=== PATIENT | female | born 2000 | race Caucasian/White ===

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

== ENCOUNTER 2019-03-01 14:35 | Emergency (ER) | payer MEDICAID ==
[~2019-03-01] VITALS: Ht 165 cm; Wt 96.7 kg
[~2019-03-01 14:35] MED LIST changes: +AZIT250T PO; +BENZ-13 PO; +PRD20T PO; +RT-ALBUINH INH
--- NOTE | 2019-03-01 14:51 | ED GU-Female ---
General Stated Complaint: VAGINAL BLEEDING - 14 WKS PREG Source: patient, other Exam Limitations: no limitations History of Present Illness Date Seen by Provider: Mar 01, 2019 Time Seen by Provider: 14:40 Initial Comments Patient presents to ER by private conveyance with her significant other and chief complaint of vaginal bleeding starting about 4:00 this morning and couple hours later she had some dark brown blood and they thought maybe a small tear at her vaginal orifice. She is a with a history of preeclampsia with her previous and a . She is 14 weeks and 6 days by EDC of 08/24/[address] Floyd in [place], [place]. She says at the time she and her partner were having intercourse and the partner was using his fingers and got too aggressive and she had some bleeding. She wants to make sure that everything is okay. She has no problems with thus far. No fevers chills dysuria diarrhea constipation or abdominal pain. Allergies and Home Medications Allergies Coded Allergies: topiramate (Verified Allergy, Severe, throat swelling, 05/29/18) buspirone (Verified Allergy, Intermediate, vomitting, 05/29/18) ferrous fumarate (Verified Allergy, Intermediate, swelling itching, 05/29/18) folic acid (Verified Allergy, Intermediate, swelling itching, 05/29/18) vit,tx calc,iron,folic acd(less thn 1 mg) (Verified Allergy, Intermediate, swelling itching, 05/29/18) vitamins with calcium (Verified Allergy, Intermediate, swelling itching, 05/29/18) Home Medications Albuterol Sulfate 1 Puff Puff, 2 PUFF INH Q4H PRN for SOA 1 PUFF = 90 MCG Prescribed by: MILLA FREDERICK on 09/07/182214 Azithromycin 250 Mg Tablet, 250 MG PO DAILY Prescribed by: MILLA FREDERICK on 09/07/182214 Benzonatate 100 Mg Capsule, 200 MG PO Q8H PRN for COUGH Prescribed by: MILLA FREDERICK on 09/07/182214 Cephalexin 500 Mg Capsule, 500 MG PO BID Prescribed by: CAPRI FRIEND on 06/14/18 1212 Docusate Sodium 100 Mg Capsule, 100 MG PO BID Prescribed by: HERNANDO ROMERO on 06/12/18 0040 Ferrous Sulfate 325 Mg Tablet, 325 MG PO DAILY Prescribed by: CAPRI FRIEND on 06/14/18 1214 Ibuprofen 800 Mg Tablet, 800 MG PO Q6H Prescribed by: HERNANDO ROMERO on 06/12/18 004 Labetalol HCl 200 Mg Tablet, 100 MG PO BID Prescribed by: HERNANDO ROMERO on 06/12/1839 Oxycodone HCl/Acetaminophen 1 Each Tablet, 1 TAB PO Q4H PRN for PAIN-MODERATE TO SEVERE Prescribed by: HERNANDO ROMERO on 06/12/1839 Prednisone 20 Mg Tab, 60 MG PO DAILY Prescribed by: MILLA FREDERICK on 09/07/18 2215 Patient Home Medication List Home Medication List Reviewed: Yes Review of Systems Review of Systems Constitutional: No chills, No fever EENTM: No ear discharge, No ear pain Respiratory: No cough, No short of breath Cardiovascular: No chest pain, No palpitations Gastrointestinal: No abdominal pain, No nausea, No vomiting Genitourinary: see HPI; denies discharge, denies dysuria : Yes Expected Date of Delivery: August 24, 2019 All Other Systemes Reviewed Negative Unless Noted: Yes Past Wcoajch-Nhntnt-Bgextc Hx Patient Social History 2nd Hand Smoke Exposure: No Recent Hopitalizations: No Immunizations Up To Date Date of Influenza Vaccine: Jan 14, 2018 Seasonal Allergies Seasonal Allergies: No Past Medical History Surgeries: Yes Section Respiratory: Yes Asthma Cardiac: No Neurological: No Genitourinary: No Gastrointestinal: No Musculoskeletal: No Endocrine: No HEENT: Yes (wears glasses) Cancer: No Anxiety Integumentary: No Blood Disorders: No Family Medical History CANCER- (MOTHER'S SIDE) Diabetes mellitus (GRANDPARENTS) FH: cancer FH: heart disease (DAD'S SIDE OF FAMILY) FH: hepatitis (FATHER HAS HEPATITIS C) HEART HEPA Hypertension (BOTH SIDES OF FAMILY) Physical Exam Vital Signs Vital Signs - First Documented 03/01/19 14:40 Temp 36.9 Pulse 97 B/P (MAP) 139/81 Pulse Ox 98 O2 Delivery Room Air Capillary Refill : Height, Weight, BMI Height: 5'5.00" Weight: 212lbs. 2.0oz. 96.334772oh; 35.15 BMI Method:Stated General Appearance: WD/WN, no apparent distress HEENT: PERRL/EOMI, pharynx normal Neck: full range of motion, normal inspection Cardiovascular: normal peripheral pulses, regular rate, rhythm Respiratory: no respiratory distress, no accessory muscle use Gastrointestinal: normal bowel sounds, non tender, soft Neurologic/Psychiatric: alert, normal mood/affect, oriented x 3 Skin: normal color, warm/dry Progress/Results/Core Measures Suspected Sepsis SIRS Temperature: Pulse: Respiratory Rate: Blood Pressure / Mean: Results/Orders Lab Results Laboratory Tests Test 03/01/19 14:38 03/01/19 14:47 Range/Units Urine Color YELLOW Urine Clarity CLEAR Urine pH 6.0 5-9 Urine Specific Pelzer >1.030 1.016-1.022 Urine Protein NEGATIVE NEGATIVE Urine Glucose (UA) NEGATIVE NEGATIVE Urine Ketones NEGATIVE NEGATIVE Urine Nitrite NEGATIVE NEGATIVE Urine Bilirubin NEGATIVE NEGATIVE Urine Urobilinogen 0.2 < = 1.0 MG/DL Urine Leukocyte Esterase TRACE NEGATIVE Urine RBC (Auto) 3+ H NEGATIVE Urine RBC 5-10 H /HPF Urine WBC 2-5 /HPF Urine Squamous Epithelial Cells 5-10 /HPF Urine Crystals NONE /LPF Urine Bacteria FEW H /HPF Urine Casts NONE /LPF Urine Mucus NEGATIVE /LPF Urine Culture Indicated NO Human Chorionic Gonadotropin, Quant [id number] H <5 MIU/ML My Orders Orders - NICOLE HARRINGTON Urine Bedside (03/01/19 14:36) Ua Culture If Indicated (03/01/19 14:36) Hcg,Quantitative (03/01/19 15:14) Vital Signs/I&O 03/01/19 14:40 Temp 36.9 Pulse 97 B/P (MAP) 139/81 Pulse Ox 98 O2 Delivery Room Air Capillary Refill : Progress Note #1: Time: 14:50 Progress Note Plan speculum exam looking for vaginal laceration. heart tones. HCG quantitative. She has on record as being B positive blood type. Urinalysis. Progress Note #2: Time: 15:30 Progress Note heart tones 148. Vaginal examination revealed normal looking cervix with the 6:00 position of the vaginal introitus having a less than 1 cm ecchymotic appearing tissue that represents a healing small laceration that is superficial and does not require any repair at this time. We have instructed her to go on pelvic rest until she sees her DOCUMENT COORDINATOR this Saturday, 6 days from now. Beta hCG pending. Departure Impression Primary Impression: Vaginal bleeding before 22 weeks gestation Additional Impression: Vaginal injury Qualified Codes: S39.93XA - Unspecified injury of pelvis, initial encounter Disposition: 01 HOME, SELF-CARE Condition: Stable Departure-Patient Inst. Decision time for Depature: 15:45 Referrals: CARLA FLOYD MD (PCP/Family) Primary Care Physician Patient Instructions: Bleeding With (DC) Add. Discharge Instructions: Pelvic rest until cleared by your DOCUMENT COORDINATOR. You have a small, mild cut in the vagina that is well on its way to healing. You may yet see some spotting or dark brown blood pass over the next day or so. Your fetus' heart rate was 145 which is normal. Please keep your scheduled follow-up appointment this week. Work/School Note: Work Release Form Date Seen in the Emergency Department: Mar 01, 2019 Return to Work: Mar 02, 2019 Restrictions: No Restrictions NICOLE HARRINGTON Mar 01, 2019 14:51 POS
[2019-03-01 14:53] LABS: CLARITY,URINE CLEAR; COLOR,URINE YELLOW
[2019-03-01 14:54] LABS: BACTERIA,URINE FEW /HPF; BILIRUBIN,URINE NEGATIVE (NEGATIVE); GLUCOSE, URINE (UA) NEGATIVE (NEGATIVE); KETONES,URINE NEGATIVE (NEGATIVE); LEUKOCYTE ESTERASE ,URINE TRACE (NEGATIVE); NITRITE,URINE NEGATIVE (NEGATIVE); PROTEIN,URINE NEGATIVE (NEGATIVE)
--- OUTSIDE RECORDS SUMMARY | 2019-03-26 09:01 | XMS REPORT ---
Author Author Diane ELY [facility] Address [address] [place] [address] Care Team Providers Care Fuel Handler Name Role Phone ELY, TARA Unavailable PROBLEMS Type Condition ICD9-CM Code UYZ25-VP Code Onset Dates Condition S tatus SNOMED Code Problem Carpal tunnel syndrome during O26.899 Oct, Active Problem Mild intermittent asthma with acute exacerbation J 45.21 Active 436524205 Problem Missed menses N92.6 Active 357196 00 Problem Chronic headaches R51 Jun, Active 38764155 Problem Seasonal allergic rhinitis J30.2 Apr, Active 663381347 Problem Asthma J45.909 Sep, Active 5169189 01 Problem Intractable migraine without aura and without st atus migrainosus G43.019 Jun, Active 818295010 ALLERGIES Substance Reaction Event Type Date Status Topiramate shortness of breath Drug Allergy May, Active BuSpar dizziness Drug Allergy May, Active BuSpar nausea and vomiting Drug Allergy May, Active PrePLUS itching Drug Allergy May, Active ENCOUNTERS Encounter Location Date Diagnosis [address] [address] Oct, Contact dermatitis L25.[address] [address] Aug, Acute bacterial bronchitis J20.8 ; Asthma exacerbation J45.901 and Cough due to bronchospasm J98.[address] [address] Aug, [address] [address] Aug, Migraine headache G43.[address] [address] Aug, Osteochondritis M93.90 and Acute right ankle pain M25.[address] [place] [address] July, Right ankle pain M25.571 and Right ankle injury, initial encounter S99.911A [facility] [address] [address] July, care and examination Z39.2 an d Missed menses N92.[address] [address] [facility] [address] [place] [phone] May, Cough due to bronchospasm J98.01 ; Asthma J45.909 and Acute bacterial bronchitis J20.[address] [address] May, Infection of superficial incisional surg ical site after procedure, initial encounter T81.41XA [address] [address] May, Supervision of normal first in third trimester Z34.03 and 37 weeks gestation of Z3A.[address] [address] 04 May, 2018 Supervision of normal first in third trimester Z34.03 and 36 weeks gestation of Z3A.36 [facility] [address] [place] [phone] May, Acute intractable headache, unspecified headache type R51 and with 35 completed weeks gestation Z3A.35 [facility] [address] [address] May, [facility] [address] [place] [phone] May, [address] [address] May, Supervision of normal first in third trimester Z34.[address] [address] 08 May, 2018 Acute URI J06.9 and Mild intermittent as thma with acute exacerbation J45.[address] [address] May, [facility] [address] [place] [address] May, Supervision of normal first in third trimester Z34.03 ; Decreased movements in third trimester, single or unspecified fetus O36.8130 and Viral upper respiratory tract infection J06.9 [facility] [address] [id number] [address] [place] [phone] Apr, [facility] [address] [id number] [address] [place] [phone] Apr, [facility] [address] [id number] [address] [place] [phone] Apr, [facility] [address] [id number] [address] [place] [phone] Apr, [facility] [address] [id number] [address] [place] [phone] Apr, [facility] [address] [id number] [address] [place] [phone] Mar, [facility] [address] [id number] [address] [place] [phone] Mar, [facility] [address] [id number] [address] [place] [phone] Jan, IMMUNIZATIONS No Known Immunizations SOCIAL HISTORY Never Assessed REASON FOR VISIT Cough - states is currently breast feeding. States cough without feeding, states recent and coughing is hurting surgical incision. PLAN OF CARE Activity Details Follow Up w/ FOOD AND NUTRITION SERVICES SUPERVISOR 06/22/2018 Reason:2 week f/u Future/Pending Procedure NEBULIZER TREATMENT VITAL SIGNS Height 65 in 2018-06-18 Weight 217.37 lbs 2018-06-18 Temperature 98.6 degrees Fahrenheit 2018-06-18 Heart Rate 87 bpm 2018-06-18 Oximetry 98 % 2018-06-18 BMI 36.17 kg/m2 2018-06-18 Blood pressure systolic 128 mmHg 2018-06-18 Blood pressure diastolic 70 mmHg 2018-06-18 MEDICATIONS Medication Instructions Dosage Frequency Start Date End Date Duration S tatus Keflex 500 MG Orally every 12 hrs 1 capsule 12h May, 10 day(s) Active Flonase 50 mcg/act Nasally Once a day 1 spray in each nostril 24h May, 30 day(s) Active Amoxicillin-Pot Clavulanate 875-125 MG Orally every 12 hrs 1 tablet 12h May, 10 day(s) Active Tylenol 325 MG Orally every 6 hours 2 tablets 6h May, Unknown Fluconazole 150 MG Orally daily Take 1 tablet with o nset of symptoms. Wait 3 days, take second tablet. 24h May, 2 doses Ac tive RESULTS No Results PROCEDURES Procedure Date Ordered Result Body Site NEB/MDI RX INITIAL June 18, 2018 INSTRUCTIONS MEDICATIONS ADMINISTERED No Known Medications MEDICAL (GENERAL) HISTORY Type Description Date Medical History asthma Surgical History section 06/11/2018 Hospitalization History childbirth 06/11/2018
--- OUTSIDE RECORDS SUMMARY | 2019-03-26 09:01 | XMS REPORT | Continuity of Care Document ---
Author Organization Unknown Address Unknown Phone Unavailable Allergies Active Description Code Type Severity Reaction Onset Reported/Identified Relationship to Patient Clinical Status Yes topiramate [id number] Drug Allerg y Severe throat swelling 05/29/2018 Yes buspirone [id number] Drug Allergy Moderate vomitting 05/29/2018 Yes ferrous fumarate [id number] Drug Allergy Moderate swelling itchin Yes folic acid [id number] Drug Allerg y Moderate swelling itchin 05/29/2018 Yes vit,tx calc,iron,folic acd(less thn 1 mg) [id number] Drug Allergy Moderate swelling itchin 05/29/2018 Yes vitamins with calcium [id number] Drug Allergy Moderate swelling itchin 05/29/2018 Medications There is no data. Problems Date Dx Coded Attending Type Code Diagnosis Diagnosed By 04/16/2018 JAMES WEN DO Ot O99.89 OTH DISEASES AND CONDITIONS COMPL PREG/C 04/16/2018 WEN DHAVAL FERRERAA K Ot R10.9 UNSPECIFIED ABDOMINAL PAIN 04/16/2018 DHAVAL WEN DOA K Ot Z3A.35 35 WEEKS GESTATION OF 05/06/2018 WEN DO JAMES K Ot O99.89 OTH DISEASES AND CONDITIONS COMPL PREG/C 05/06/2018 DHAVAL WEN DOA K Ot R10.9 UNSPECIFIED ABDOMINAL PAIN 05/06/2018 DHAVAL WEN DOA K Ot Z3A.35 35 WEEKS GESTATION OF 05/29/2018 WEN DO JAMES K Ot O36.81 30 DECREASED MOVEMENTS, THIRD TRIMEST 05/29/2018 WEN DO JAMES K Ot Z3A.35 35 WEEKS GESTATION OF 06/02/2018 WEN DO JAMES K Ot O36.81 30 DECREASED MOVEMENTS, THIRD TRIMEST 06/02/2018 WEN DO JAMES K Ot Z3A.35 35 WEEKS GESTATION OF 06/04/2018 WEN DO JAMES K Ot O36.81 30 DECREASED MOVEMENTS, THIRD TRIMEST 06/04/2018 WEN DO JAMES K Ot Z3A.35 35 WEEKS GESTATION OF 06/14/2018 ALMAZ CUMMINGS MD Ot D62 ACUTE POSTHEMORRHAGIC ANEMIA 06/14/2018 ALMAZ CUMMINGS MD Ot 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 06/14/2018 ALMAZ CUMMINGS MD Ot K59.00 CONSTIPATION, UNSPECIFIED 06/14/2018 ALMAZ CUMMINGS MD Ot O14.14 SEVERE PRE-ECLAMPSIA COMPLICATING CHILDB 06/14/2018 ALMAZ CUMMINGS MD Ot O90.81 ANEMIA OF THE PUERPERIUM 06/14/2018 ALMAZ CUMMINGS MD Ot O90.89 OTH COMPLICATIONS OF THE PUERPERIUM, NEC 06/14/2018 ALMAZ CUMMINGS MD Ot R30 .0 DYSURIA 06/14/2018 ALMAZ CUMMINGS MD Ot Z37 .0 SINGLE LIVE 06/14/2018 ALMAZ CUMMINGS MD, Ot Z3A.37 37 WEEKS GESTATION OF 06/20/2018 ALMAZ CUMMINGS MD Ot D62 ACUTE POSTHEMORRHAGIC ANEMIA 06/20/2018 ALMAZ CUMMINGS MD Ot 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 06/20/2018 ALMAZ CUMMINGS MD Ot K59.00 CONSTIPATION, UNSPECIFIED 06/20/2018 ALMAZ CUMMINGS MD Ot O14.14 SEVERE PRE-ECLAMPSIA COMPLICATING CHILDB 06/20/2018 ALMAZ CUMMINGS MD Ot O90.81 ANEMIA OF THE PUERPERIUM 06/20/2018 ALMAZ CUMMINGS MD Ot O90.89 OTH COMPLICATIONS OF THE PUERPERIUM, NEC 06/20/2018 ALMAZ CUMMINGS MD Ot R30 .0 DYSURIA 06/20/2018 ALMAZ CUMMINGS MD Ot Z37 .0 SINGLE LIVE 06/20/2018 ALMAZ CUMMINGS MD Ot Z3A.37 37 WEEKS GESTATION OF 09/07/2018 MILLA FREDERICK DO Ot F41.9 ANXIETY DISORDER, UNSPECIFIED 09/07/2018 MILLA FREDERICK DO Ot J45.909 UNSPECIFIED ASTHMA, UNCOMPLICATED 09/07/2018 MILLA FREDERICK DO Ot R06.02 SHORTNESS OF BREATH 09/07/2018 YOLY FERRERAMILLA Jerel Ot Z82.49 FAMILY HX OF ISCHEM HEART DIS AND OTH DI 09/07/2018 YOLY FERRERAMILLA Jerel Ot Z88.8 ALLERGY STATUS TO OTH DRUG/MEDS/BIOL SUB 09/07/2018 YOLY FERRERA MILLA Beltrán Ot Z98.890 OTHER SPECIFIED POSTPROCEDURAL STATES 09/11/2018 YOLY FERRERAMILLA Jerel Ot F41.9 ANXIETY DISORDER, UNSPECIFIED 09/11/2018 YOLY FERRERAMILLA Ot J45.909 UNSPECIFIED ASTHMA, UNCOMPLICATED 09/11/2018 YOLY FERRERAMILLA Jerel Ot R06.02 SHORTNESS OF BREATH 09/11/2018 YOLY FERRERAMILLA Ot Z82.49 FAMILY HX OF ISCHEM HEART DIS AND OTH DI 09/11/2018 YOLY FERRERAMILLA Ot Z88.8 ALLERGY STATUS TO OTH DRUG/MEDS/BIOL SUB 09/11/2018 YOLY FERRERAMILLA Ot Z98.890 OTHER SPECIFIED POSTPROCEDURAL STATES 03/06/2019 NICOLE HARRINGTON MD Ot F41. 9 ANXIETY DISORDER, UNSPECIFIED 03/06/2019 NICOLE HARRINGTON MD Ot J45.909 UNSPECIFIED ASTHMA, UNCOMPLICATED 03/06/2019 NIOCLE HARRINGTON MD Ot O20. 9 HEMORRHAGE IN EARLY , UNSPECIFI 03/06/2019 NICOLE HARRINGTON MD Ot O99.342 OTH MENTAL DISORDERS COMP , SEC 03/06/2019 NICOLE HARRINGTON MD Ot O99.512 DISEASES OF THE RESP SYS COMP , 03/06/2019 NICOLE HARRINGTON MD Ot O9A.212 INJ/POISN/OTH CONSEQ OF EXTRN CAUSES COM 03/06/2019 NICOLE HARRINGTON MD Ot S39.93XA UNSPECIFIED INJURY OF PELVIS, INITIAL EN 03/06/2019 NICOLE HARRINGTON MD Ot Z3A. 14 14 WEEKS GESTATION OF 03/06/2019 NICOLE HARRINGTON MD Ot Z79. 52 CARE HOME (CURRENT) USE OF SYSTEMIC STER 03/06/2019 NICOLE HARRINGTON MD Ot Z82. 49 FAMILY HX OF ISCHEM HEART DIS AND OTH DI 03/06/2019 NICOLE HARRINGTON MD Ot Z88. 8 ALLERGY STATUS TO OTH DRUG/MEDS/BIOL SUB 03/08/2019 NICOLE HARRINGTON MD Ot F41. 9 ANXIETY DISORDER, UNSPECIFIED 03/08/2019 NICOLE HARRINGTON MD Ot J45.909 UNSPECIFIED ASTHMA, UNCOMPLICATED 03/08/2019 NICOLE HARRINGTON MD Ot O20. 9 HEMORRHAGE IN EARLY , UNSPECIFI 03/08/2019 NICOLE HARRINGTON MD Ot O99.342 OTH MENTAL DISORDERS COMP , SEC 03/08/2019 NICOLE HARRINGTON MD Ot O99.512 DISEASES OF THE RESP SYS COMP , 03/08/2019 NICOLE HARRINGTON MD Ot O9A.212 INJ/POISN/OTH CONSEQ OF EXTRN CAUSES COM 03/08/2019 NICOLE HARRINGTON MD Ot S39.93XA UNSPECIFIED INJURY OF PELVIS, INITIAL EN 03/08/2019 NICOLE HARRINGTON MD Ot Z3A. 14 14 WEEKS GESTATION OF 03/08/2019 NICOLE HARRINGTON MD Ot Z79. 52 CARE HOME (CURRENT) USE OF SYSTEMIC STER 03/08/2019 NICOLE HARRINGTON MD Ot Z82. 49 FAMILY HX OF ISCHEM HEART DIS AND OTH DI 03/08/2019 NICOLE HARRINGTON MD Ot Z88. 8 ALLERGY STATUS TO OTH DRUG/MEDS/BIOL SUB Procedures Code Description Performed By Per formed On [id number] EX TRACTION OF PRODUCTS OF CONCEPTION, LO 06/11/2018 Results Test Result Range CULTURE, GROUP B STREP WITH SUSCEPTIBILI TY - 05/26/18 14:32 CULTURE, GROUP B STREP WITH SUSCEPTIBILITY SEE NOT E NRG Complete urinalysis with reflex to cultu re - 05/29/18 20:00 Urine color determination YELLOW NRG Urine clarity determination VERY CLOUDY NRG Urine pH measurement by test strip 6 5-9 Specific gravity of urine by test strip 1.020 1.016-1.022 Urine protein assay by test strip, semi-quantitative 1+ NEGATIVE Urine glucose detection by automated test strip NE GATIVE NEGATIVE Erythrocytes detection in urine sediment by light micr oscopy 3+ NEGATIVE Urine ketones detection by automated test strip 1+ NEGATIVE Urine nitrite detection by test strip NEGATIVE NEGATIVE Urine total bilirubin detection by test strip NEGA TIVE NEGATIVE Urine urobilinogen measurement by automated test strip (mass/volume) 1 mg/dL NORMAL Urine leukocyte esterase detection by dipstick 1+ NEGATIVE Automated urine sediment erythrocyte cou nt by microscopy (number/high power field) [HPF] NRG Automated urine sediment leukocyte count by microscopy (number/high power field) [HPF] NRG Bacteria detection in urine sediment by light microsco py FEW NRG Squamous epithelial cells detection in u rine sediment by light microscopy 10-25 NRG Crystals detection in urine sediment by light microsco py PRESENT NRG Casts detection in urine sediment by light microscopy NONE NRG Mucus detection in urine sediment by light microscopy MODERATE NRG Complete urinalysis with reflex to culture NO NRG Calcium oxalate crystals detection in ur ine sediment by light microscopy LARGE NRG Urine protein/creatinine mass ratio - 20:00 Urine protein measurement (mass/volume) 20 mg/dL 6-12 Urine creatinine measurement (mass/volume) 217 mg/ dL 30-125 Urine protein/creatinine mass ratio 0.09 NRG Bacterial urine culture - 05/29/18 20:00 Bacterial urine culture 3 OR MORE NRG COLONY COUNT >100,000/ML NRG FTX;REPORTABLE (GRAM POSITIVE) SUGGESTING PROBABLE NRG FREE TEXT ENTRY 2 COLLECTION CONTAMINATION WITH SK IN NRG FREE TEXT ENTRY 3 CHENTE. NO SUSCEPTIBILITY PERFOR MED NRG Complete blood count (CBC) with automate d white blood cell (WBC) differential - 05/29/18 21:25 Blood leukocytes automated count (number/volume) 10.3 10*3/uL 4.3-11.0 Blood erythrocytes automated count (number/volume) 4.33 10*6/uL 4.35-5.85 Venous blood hemoglobin measurement (mass/volume) 12.6 g/dL 11.5-16.0 Blood hematocrit (volume fraction) 38 % 35-52 Automated erythrocyte mean corpuscular volume 87 [ foz_us] 80-99 Automated erythrocyte mean corpuscular h emoglobin (mass per erythrocyte) 29 pg 25-34 Automated erythrocyte mean corpuscular h emoglobin concentration measurement (mass/volume) 34 g/dL 32-36 Automated erythrocyte distribution width ratio 14. 0 % 10.0- 14.5 Automated blood platelet count (count/volume) 313 10*3/uL 130-400 Automated blood platelet mean volume measurement 11.2 [foz_us] 7.4-10.4 Automated blood neutrophils/100 leukocytes 68 % 42-75 Automated blood lymphocytes/100 leukocytes 23 % 12-44 Blood monocytes/100 leukocytes 9 % 0-12 Automated blood eosinophils/100 leukocytes 0 % 0-10 Automated blood basophils/100 leukocytes 0 % 0-10 Blood neutrophils automated count (number/volume) 7.0 10*3 1.8-7.8 Blood lymphocytes automated count (number/volume) 2.3 10*3 1.0-4.0 Blood monocytes automated count (number/volume) 1. 0 10*3 0.0-1.0 Automated eosinophil count 0.0 10*3/uL 0 .0-0.3 Automated blood basophil count (count/volume) 0.0 10*3/uL 0.0-0.1 Comprehensive metabolic panel - 05/29/18 21:25 Serum or plasma sodium measurement (moles/volume) 138 mmol/L 135-145 Serum or plasma potassium measurement (moles/volume) 4.3 mmol/L 3.6-5.0 Serum or plasma chloride measurement (moles/volume) 105 mmol/L 98-107 Carbon dioxide 21 mmol/L 21-32 Serum or plasma anion gap determination (moles/volume) 12 mmol/L 5-14 Serum or plasma urea nitrogen measurement (mass/volume ) 6 mg/dL 7-18 Serum or plasma creatinine measurement (mass/volume) 0.61 mg/dL 0.60-1.30 Serum or plasma urea nitrogen/creatinine mass ratio 10 NRG Serum or plasma creatinine measurement w ith calculation of estimated glomerular filtration rate > NRG Serum or plasma glucose measurement (mass/volume) 74 mg/dL 70-105 Serum or plasma calcium measurement (mass/volume) 9.8 mg/dL 8.5-10.1 Serum or plasma total bilirubin measurement (mass/volu me) 0.4 mg/dL 0.1-1.0 Serum or plasma alkaline phosphatase luis alfredo surement (enzymatic activity/volume) 176 U/L 60-350 Serum or plasma aspartate aminotransfera se measurement (enzymatic activity/volume) 19 U/L 5-34 Serum or plasma alanine aminotransferase measurement (enzymatic activity/volume) 12 U/L 0-55 Serum or plasma protein measurement (mass/volume) 6.7 g/dL 6.4-8.2 Serum or plasma albumin measurement (mass/volume) 3.2 g/dL 3.2-4.5 CALCIUM CORRECTED 10.4 mg/dL 8.5-10.1 Lactate dehydrogenase 1 [enzymatic activ ity/volume] in serum or plasma - 05/29/18 21:25 Lactate dehydrogenase 1 [enzymatic activ ity/volume] in serum or plasma 183 U/L 125-220 Complete urinalysis with reflex to cultu re - 06/11/18 04:00 Urine color determination YELLOW NRG Urine clarity determination CLEAR NR G Urine pH measurement by test strip 6.5 5-9 Specific gravity of urine by test strip 1.010 1.016-1.022 Urine protein assay by test strip, semi-quantitative NEGATIVE NEGATIVE Urine glucose detection by automated test strip NE GATIVE NEGATIVE Erythrocytes detection in urine sediment by light micr oscopy NEGATIVE NEGATIVE Urine ketones detection by automated test strip NE GATIVE NEGATIVE Urine nitrite detection by test strip NEGATIVE NEGATIVE Urine total bilirubin detection by test strip NEGA TIVE NEGATIVE Urine urobilinogen measurement by automated test strip (mass/volume) NORMAL NORMAL Urine leukocyte esterase detection by dipstick 1+ NEGATIVE Automated urine sediment erythrocyte cou nt by microscopy (number/high power field) NONE NRG Automated urine sediment leukocyte count by microscopy (number/high power field) NONE NRG Bacteria detection in urine sediment by light microsco py NEGATIVE NRG Squamous epithelial cells detection in u rine sediment by light microscopy 0-2 NRG Crystals detection in urine sediment by light microsco py NONE NRG Casts detection in urine sediment by light microscopy NONE NRG Mucus detection in urine sediment by light microscopy SMALL NRG Complete urinalysis with reflex to culture NO NRG Urine protein/creatinine mass ratio - 04:00 Urine protein measurement (mass/volume) 15 mg/dL 6-12 Urine creatinine measurement (mass/volume) 50 mg/d L 30-125 Urine protein/creatinine mass ratio 0.30 NRG Complete blood count (CBC) with automate d white blood cell (WBC) differential - 06/11/18 04:35 Blood leukocytes automated count (number/volume) 9.8 10*3/uL 4.3-11.0 Blood erythrocytes automated count (number/volume) 3.88 10*6/uL 4.35-5.85 Venous blood hemoglobin measurement (mass/volume) 11.4 g/dL 11.5-16.0 Blood hematocrit (volume fraction) 34 % 35-52 Automated erythrocyte mean corpuscular volume 87 [ foz_us] 80-99 Automated erythrocyte mean corpuscular h emoglobin (mass per erythrocyte) 29 pg 25-34 Automated erythrocyte mean corpuscular h emoglobin concentration measurement (mass/volume) 34 g/dL 32-36 Automated erythrocyte distribution width ratio 14. 2 % 10.0- 14.5 Automated blood platelet count (count/volume) 307 10*3/uL 130-400 Automated blood platelet mean volume measurement 10.7 [foz_us] 7.4-10.4 Automated blood neutrophils/100 leukocytes 64 % 42-75 Automated blood lymphocytes/100 leukocytes 26 % 12-44 Blood monocytes/100 leukocytes 9 % 0-12 Automated blood eosinophils/100 leukocytes 1 % 0-10 Automated blood basophils/100 leukocytes 0 % 0-10 Blood neutrophils automated count (number/volume) 6.3 10*3 1.8-7.8 Blood lymphocytes automated count (number/volume) 2.6 10*3 1.0-4.0 Blood monocytes automated count (number/volume) 0. 9 10*3 0.0-1.0 Automated eosinophil count 0.1 10*3/uL 0 .0-0.3 Automated blood basophil count (count/volume) 0.0 10*3/uL 0.0-0.1 Comprehensive metabolic panel - 06/11/18 04:35 Serum or plasma sodium measurement (moles/volume) 133 mmol/L 135-145 Serum or plasma potassium measurement (moles/volume) 3.7 mmol/L 3.6-5.0 Serum or plasma chloride measurement (moles/volume) 102 mmol/L 98-107 Carbon dioxide 20 mmol/L 21-32 Serum or plasma anion gap determination (moles/volume) 11 mmol/L 5-14 Serum or plasma urea nitrogen measurement (mass/volume ) 5 mg/dL 7-18 Serum or plasma creatinine measurement (mass/volume) 0.56 mg/dL 0.60-1.30 Serum or plasma urea nitrogen/creatinine mass ratio 9 NRG Serum or plasma creatinine measurement w ith calculation of estimated glomerular filtration rate > NRG Serum or plasma glucose measurement (mass/volume) 77 mg/dL 70-105 Serum or plasma calcium measurement (mass/volume) 9.1 mg/dL 8.5-10.1 Serum or plasma total bilirubin measurement (mass/volu me) 0.6 mg/dL 0.1-1.0 Serum or plasma alkaline phosphatase luis alfredo surement (enzymatic activity/volume) 194 U/L 60-350 Serum or plasma aspartate aminotransfera se measurement (enzymatic activity/volume) 23 U/L 5-34 Serum or plasma alanine aminotransferase measurement (enzymatic activity/volume) 9 U/L 0-55 Serum or plasma protein measurement (mass/volume) 6.2 g/dL 6.4-8.2 Serum or plasma albumin measurement (mass/volume) 3.2 g/dL 3.2-4.5 CALCIUM CORRECTED 9.7 mg/dL 8.5-10.1 Serum or plasma uric acid measurement (m ass/volume) - 06/11/18 04:35 Serum or plasma uric acid measurement (mass/volume) 5.7 mg/dL 2.6-7.2 Lactate dehydrogenase 1 [enzymatic activ ity/volume] in serum or plasma - 06/11/18 04:35 Lactate dehydrogenase 1 [enzymatic activ ity/volume] in serum or plasma 191 U/L 125-220 Blood type T Indirect antibody screen pa brian - 06/11/18 07:05 ABO+Rh group BP NRG Transfusion band number [id number] [facility] Blood group antibody screen NEGATIVE NR G Complete blood count (CBC) with automate d white blood cell (WBC) differential - 06/12/18 05:35 Blood leukocytes automated count (number/volume) 16.6 10*3/uL 4.3-11.0 Blood erythrocytes automated count (number/volume) 3.52 10*6/uL 4.35-5.85 Venous blood hemoglobin measurement (mass/volume) 10.2 g/dL 11.5-16.0 Blood hematocrit (volume fraction) 31 % 35-52 Automated erythrocyte mean corpuscular volume 89 [ foz_us] 80-99 Automated erythrocyte mean corpuscular h emoglobin (mass per erythrocyte) 29 pg 25-34 Automated erythrocyte mean corpuscular h emoglobin concentration measurement (mass/volume) 33 g/dL 32-36 Automated erythrocyte distribution width ratio 14. 3 % 10.0- 14.5 Automated blood platelet count (count/volume) 298 10*3/uL 130-400 Automated blood platelet mean volume measurement 10.8 [foz_us] 7.4-10.4 Automated blood neutrophils/100 leukocytes 80 % 42-75 Automated blood lymphocytes/100 leukocytes 9 % 12-44 Blood monocytes/100 leukocytes 10 % 0-12 Automated blood eosinophils/100 leukocytes 0 % 0-10 Automated blood basophils/100 leukocytes 0 % 0-10 Blood neutrophils automated count (number/volume) 13.3 10*3 1.8-7.8 Blood lymphocytes automated count (number/volume) 1.6 10*3 1.0-4.0 Blood monocytes automated count (number/volume) 1. 7 10*3 0.0-1.0 Automated eosinophil count 0.0 10*3/uL 0 .0-0.3 Automated blood basophil count (count/volume) 0.0 10*3/uL 0.0-0.1 Comprehensive metabolic panel - 06/12/18 05:35 Serum or plasma sodium measurement (moles/volume) 134 mmol/L 135-145 Serum or plasma potassium measurement (moles/volume) 4.6 mmol/L 3.6-5.0 Serum or plasma chloride measurement (moles/volume) 104 mmol/L 98-107 Carbon dioxide 21 mmol/L 21-32 Serum or plasma anion gap determination (moles/volume) 9 mmol/L 5-14 Serum or plasma urea nitrogen measurement (mass/volume ) 6 mg/dL 7-18 Serum or plasma creatinine measurement (mass/volume) 0.60 mg/dL 0.60-1.30 Serum or plasma urea nitrogen/creatinine mass ratio 10 NRG Serum or plasma creatinine measurement w ith calculation of estimated glomerular filtration rate > NRG Serum or plasma glucose measurement (mass/volume) 95 mg/dL 70-105 Serum or plasma calcium measurement (mass/volume) 8.2 mg/dL 8.5-10.1 Serum or plasma total bilirubin measurement (mass/volu me) 0.4 mg/dL 0.1-1.0 Serum or plasma alkaline phosphatase luis alfredo surement (enzymatic activity/volume) 178 U/L 60-350 Serum or plasma aspartate aminotransfera se measurement (enzymatic activity/volume) 21 U/L 5-34 Serum or plasma alanine aminotransferase measurement (enzymatic activity/volume) 10 U/L 0-55 Serum or plasma protein measurement (mass/volume) 6.1 g/dL 6.4-8.2 Serum or plasma albumin measurement (mass/volume) 3.1 g/dL 3.2-4.5 CALCIUM CORRECTED 8.9 mg/dL 8.5-10.1 Lactate dehydrogenase 1 [enzymatic activ ity/volume] in serum or plasma - 06/12/18 05:35 Lactate dehydrogenase 1 [enzymatic activ ity/volume] in serum or plasma 257 U/L 125-220 Human immunodeficiency virus (HIV) type 1 and 2 antibody detection - 06/12/18 15:48 Serum HIV 1+2 antibody detection by immunoblot Non-Reactive Non-Reactive Body fluid hepatitis B virus surface ant igen detection - 06/12/18 15:48 Confirmatory quantitative serum or plasm a hepatitis B virus surface antigen measurement Non-Reactive Non-Reactive RUBELLA ANTIBODY IGG - 06/12/18 15:48 Interpretation of serum rubella virus IgG antibody girish t Positive Negative Rubella IgG ab 1.12 % 0.00-0.89 Serum reagin antibody assay (units/volum e) by RPR - 06/12/18 15:48 Serum reagin antibody assay (units/volume) by RPR Non-Reactive Non-Reactive Complete blood count (CBC) with automate d white blood cell (WBC) differential - 06/14/18 06:19 Blood leukocytes automated count (number/volume) 7.4 10*3/uL 4.3-11.0 Blood erythrocytes automated count (number/volume) 3.13 10*6/uL 4.35-5.85 Venous blood hemoglobin measurement (mass/volume) 9.5 g/dL 11.5-16.0 Blood hematocrit (volume fraction) 29 % 35-52 Automated erythrocyte mean corpuscular volume 91 [ foz_us] 80-99 Automated erythrocyte mean corpuscular h emoglobin (mass per erythrocyte) 30 pg 25-34 Automated erythrocyte mean corpuscular h emoglobin concentration measurement (mass/volume) 33 g/dL 32-36 Automated erythrocyte distribution width ratio 14. 6 % 10.0- 14.5 Automated blood platelet count (count/volume) 293 10*3/uL 130-400 Automated blood platelet mean volume measurement 10.2 [foz_us] 7.4-10.4 Automated blood neutrophils/100 leukocytes 53 % 42-75 Automated blood lymphocytes/100 leukocytes 33 % 12-44 Blood monocytes/100 leukocytes 8 % 0-12 Automated blood eosinophils/100 leukocytes 6 % 0-10 Automated blood basophils/100 leukocytes 0 % 0-10 Blood neutrophils automated count (number/volume) 3.9 10*3 1.8-7.8 Blood lymphocytes automated count (number/volume) 2.5 10*3 1.0-4.0 Blood monocytes automated count (number/volume) 0. 6 10*3 0.0-1.0 Automated eosinophil count 0.4 10*3/uL 0 .0-0.3 Automated blood basophil count (count/volume) 0.0 10*3/uL 0.0-0.1 Complete urinalysis with reflex to cultu re - 06/14/18 11:25 Urine color determination YELLOW NRG Urine clarity determination CLEAR NR G Urine pH measurement by test strip 6 5-9 Specific gravity of urine by test strip 1.025 1.016-1.022 Urine protein assay by test strip, semi-quantitative 2+ NEGATIVE Urine glucose detection by automated test strip NE GATIVE NEGATIVE Erythrocytes detection in urine sediment by light micr oscopy 5+ NEGATIVE Urine ketones detection by automated test strip NE GATIVE NEGATIVE Urine nitrite detection by test strip NEGATIVE NEGATIVE Urine total bilirubin detection by test strip NEGA TIVE NEGATIVE Urine urobilinogen measurement by automated test strip (mass/volume) NORMAL NORMAL Urine leukocyte esterase detection by dipstick 1+ NEGATIVE Automated urine sediment erythrocyte cou nt by microscopy (number/high power field) [HPF] NRG Automated urine sediment leukocyte count by microscopy (number/high power field) [HPF] NRG Bacteria detection in urine sediment by light microsco py NEGATIVE NRG Squamous epithelial cells detection in u rine sediment by light microscopy 5-10 NRG Crystals detection in urine sediment by light microsco py NONE NRG Casts detection in urine sediment by light microscopy NONE NRG Mucus detection in urine sediment by light microscopy NEGATIVE NRG Complete urinalysis with reflex to culture NO NRG Bacterial urine culture - 06/14/18 11:25 Bacterial urine culture 3 OR MORE NRG COLONY COUNT >100,000/ML NRG FTX;REPORTABLE SUGGESTING PROBABLE COLLECTION NRG FREE TEXT ENTRY 2 CONTAMINATION WITH SKIN CHENTE NRG FREE TEXT ENTRY 3 NO SUSCEPTIBILITY PERFORMED NRG HCG, QUAL REFLEX TO QUANT - 08/11/18 10: 50 HCG, TOTAL, QL NEGATIVE See Note: BLOOD TPYE/RH FACTOR - 12/29/18 12:40 ABO GROUP B NRG RH TYPE RH(D) POSITIVE NRG ANTIBODY SCREEN - 12/29/18 12:40 ANTIBODY SCREEN, RBC W/REFL ID, TITER AND AG NO ANTIBODIES DETECTED NRG SYPHILIS (RPR W/ REFLEX CONFIRMATION) - 12/29/18 12:40 RPR (DX) W/REFL TITER AND CONFIRMATORY TESTING NON-REACTIVE NON-REACTIVE HEP B SURFACE ANTIGEN - 12/29/18 12:40 HEPATITIS B SURFACE ANTIGEN NON-REACTIVE NON-REACTIVE HCG, QUANTITATIVE - 12/29/18 12:40 HCG, TOTAL, QN 9571 mIU/mL NRG CULTURE, URINE - 12/29/18 12:40 CULTURE, URINE, ROUTINE SEE NOTE NRG Complete urinalysis with reflex to cultu re - 03/01/19 14:38 Urine color determination YELLOW NRG Urine clarity determination CLEAR NR G Urine pH measurement by test strip 6.0 5-9 Specific gravity of urine by test strip > 1.016-1.022 Urine protein assay by test strip, semi-quantitative NEGATIVE NEGATIVE Urine glucose detection by automated test strip NE GATIVE NEGATIVE Erythrocytes detection in urine sediment by light micr oscopy 3+ NEGATIVE Urine ketones detection by automated test strip NE GATIVE NEGATIVE Urine nitrite detection by test strip NEGATIVE NEGATIVE Urine total bilirubin detection by test strip NEGA TIVE NEGATIVE Urine urobilinogen measurement by automated test strip (mass/volume) 0.2 mg/dL < = 1.0 Urine leukocyte esterase detection by dipstick TRA CE NEGATIVE Automated urine sediment erythrocyte cou nt by microscopy (number/high power field) [HPF] NRG Automated urine sediment leukocyte count by microscopy (number/high power field) [HPF] NRG Bacteria detection in urine sediment by light microsco py FEW NRG Squamous epithelial cells detection in u rine sediment by light microscopy 5-10 NRG Crystals detection in urine sediment by light microsco py NONE NRG Casts detection in urine sediment by light microscopy NONE NRG Mucus detection in urine sediment by light microscopy NEGATIVE NRG Complete urinalysis with reflex to culture NO NRG Serum or plasma choriogonadotropin measu rement (units/volume) - 03/01/19 14:47 Serum or plasma choriogonadotropin measurement (units/ volume) [id number] m[iU]/mL <5 Encounters ACCT No. Visit Date/Time Discharge Status Pt. Type Provider Facility Loc./Unit Complaint [id number] 02/25/2019 16:00:00 02/25/2019 23:59:5 9 CLS Outpatient ALMAZ CUMMINGS [facility] [id number] 12/29/2018 11:00:00 Document Registration [id number] 08/11/2018 10:45:00 Document Registration [id number] 05/26/2018 13:15:00 Document Registration [id number] 03/01/2019 14:36:00 16:20:00 DIS Outpatient INCOLE HARRINGTON MD [facility] ER FS VAGINAL BLEEDING - [address] PREG [id number] 09/07/2018 21:44:00 22:32:00 DIS Emergency MILLA FREDERICK DO [facility] ER FS TROBLE BREATHING [id number] 06/11/2018 02:30:00 16:30:00 DIS Inpatient ALMAZ CUMMINGS MD [facility] LDRP LABOR [id number] 05/29/2018 19:51:00 22:54:00 DIS Outpatient JAMES WEN DO [facility] WSo CONTRACTIONS [id number] 04/16/2018 17:03:00 19:50:00 DIS Outpatient JAMES WEN DO [facility] WSo ABD PAIN
== END 2019-03-01 16:20 | disposition home or self-care (01) ==
LOC: EDUNIT# 14:35 → ER FS 14:36
DX: O20.9 Hemorrhage in early pregnancy, unspecified (principal); O9A.212 Injury, poisoning and certain other consequences of external causes complicating pregnancy, second trimester; S39.93XA Unspecified injury of pelvis, initial encounter; O99.512 Diseases of the respiratory system complicating pregnancy, second trimester; J45.909 Unspecified asthma, uncomplicated; O99.342 Other mental disorders complicating pregnancy, second trimester; F41.9 Anxiety disorder, unspecified; Z88.8 Allergy status to other drugs, medicaments and biological substances; Z3A.14 14 weeks gestation of pregnancy; Z79.52 Long term (current) use of systemic steroids; Z82.49 Family history of ischemic heart disease and other diseases of the circulatory system
CPT/HCPCS: 36415; 81000; 84702

== ENCOUNTER 2019-04-14 16:51 | Emergency (ER) | payer MEDICAID ==
[~2019-04-14] VITALS: Ht 165 cm; Wt 95.7 kg
--- NOTE | 2019-04-14 17:12 | ED Headache ---
General Chief Complaint: Head/Cervical Problems Stated Complaint: MIGRAINE/PAINFUL URINATING Source: patient Exam Limitations: no limitations (MIKE SCHUMACHER DO) History of Present Illness Date Seen by Provider: Apr 14, 2019 Time Seen by Provider: 17:05 Initial Comments The patient is a pleasant 18-year-old female who presents for evaluation of a high-grade and headache over the last few days which started gradually in the frontal region and is now radiating to the back. This is associated with some light and sound sensitivity. She reports a history of chronic migraines and states that this is similar. She also is complaining of some dysuria over the last 24 hours. She is currently 21 weeks . She denies fevers or chills, vomiting, neck pain or stiffness, back pain, chest pain or shortness of breath, abdominal pain, pelvic pain/bleeding/discharge, dizziness or syncope. She is here with her mother. She is to be prescribed Topamax does not currently take any migraine medications. She is alert and oriented 4, calm, and appears to be in no distress this time. Timing/Duration: other (2-3 days) Severity/Quality: moderate Location: frontal Prior Headaches/Recent Trauma: frequent headaches, chronic headaches Modifying Factors: improves with exposure to light (worsens) Associated Symptoms: denies symptoms (MIKE SCHUMACHER DO) Allergies and Home Medications Allergies Coded Allergies: topiramate (Verified Allergy, Severe, throat swelling, 05/29/18) buspirone (Verified Allergy, Intermediate, vomitting, 05/29/18) ferrous fumarate (Verified Allergy, Intermediate, swelling itching, 05/29/18) folic acid (Verified Allergy, Intermediate, swelling itching, 05/29/18) vit,tx calc,iron,folic acd(less thn 1 mg) (Verified Allergy, Intermediate, swelling itching, 05/29/18) vitamins with calcium (Verified Allergy, Intermediate, swelling itching, 05/29/18) Home Medications Albuterol Sulfate 1 Puff Puff, 2 PUFF INH Q4H PRN for SOA 1 PUFF = 90 MCG Prescribed by: MILLA FREDERICK on 09/07/182214 Azithromycin 250 Mg Tablet, 250 MG PO DAILY Prescribed by: MILLA FREDERICK on 09/07/182214 Benzonatate 100 Mg Capsule, 200 MG PO Q8H PRN for COUGH Prescribed by: MILLA FREDERICK on 09/07/182214 Cephalexin 500 Mg Capsule, 500 MG PO BID Prescribed by: CAPRI FRIEND on 06/14/18 1212 Docusate Sodium 100 Mg Capsule, 100 MG PO BID Prescribed by: HERNANDO ROMERO on 06/12/18 004 Ferrous Sulfate 325 Mg Tablet, 325 MG PO DAILY Prescribed by: CAPRI FRIEND on 06/14/18 1214 Ibuprofen 800 Mg Tablet, 800 MG PO Q6H Prescribed by: HERNANDO ROMERO on 06/12/18 004 Labetalol HCl 200 Mg Tablet, 100 MG PO BID Prescribed by: HERNANDO ROMERO on 06/12/1839 Nitrofurantoin Monohyd/M-Cryst 100 Mg Capsule, 1 TAB PO BID Prescribed by: MIKE SCHUMACHER on 04/14/19 175 Oxycodone HCl/Acetaminophen 1 Each Tablet, 1 TAB PO Q4H PRN for PAIN-MODERATE TO SEVERE Prescribed by: HERNANDO ROMERO on 06/12/1839 Prednisone 20 Mg Tab, 60 MG PO DAILY Prescribed by: MILLA FREDERICK on 09/07/182214 Patient Home Medication List Home Medication List Reviewed: Yes (MIKE SCHUMACHER DO) Review of Systems Review of Systems Constitutional: no symptoms reported Eyes: No Symptoms Reported Ears, Nose, Mouth, Throat: no symptoms reported Respiratory: no symptoms reported Cardiovascular: no symptoms reported Gastrointestinal: no symptoms reported Genitourinary: dysuria : Yes Musculoskeletal: no symptoms reported Skin: no symptoms reported Psychiatric/Neurological: Headache (MIKE SCHUMACHER DO) All Other Systems Reviewed Negative Unless Noted: Yes (MIKE SCHUMACHER DO) Past Pskiuyj-Weclgk-Vmsgpm Hx Past Med/Social Hx: Reviewed Nursing Past Med/Soc Hx (MIKE SCHUMACHER DO) Patient Social History 2nd Hand Smoke Exposure: No Recent Foreign Travel: No Contact w/Someone Who Travel: No Recent Hopitalizations: No (MIKE SCHUMACHER DO) Immunizations Up To Date Date of Influenza Vaccine: Jan 14, 2018 (MIKE SCHUMACHER DO) Seasonal Allergies Seasonal Allergies: No (MIKE SCHUMACHER DO) Past Medical History Surgeries: Yes Section Respiratory: Yes Asthma Cardiac: No Neurological: No Genitourinary: No Gastrointestinal: No Musculoskeletal: No Endocrine: No HEENT: Yes (wears glasses) Cancer: No Anxiety Integumentary: No Blood Disorders: No (MIKE SCHUMACHER DO) Family Medical History CANCER- (MOTHER'S SIDE) Diabetes mellitus (GRANDPARENTS) FH: cancer FH: heart disease (DAD'S SIDE OF FAMILY) FH: hepatitis (FATHER HAS HEPATITIS C) HEART HEPA Hypertension (BOTH SIDES OF FAMILY) Physical Exam Vital Signs Vital Signs - First Documented 04/14/19 16:55 Temp 36.3 Pulse 87 Resp 16 B/P (MAP) 130/79 Pulse Ox 99 O2 Delivery Room Air (JATIN MARTINEZ MD) Vital Signs Capillary Refill : (MIKE SCHUMACHER DO) Height, Weight, BMI Height: 5'5.00" Weight: 212lbs. 2.0oz. 96.994892do; 35.00 BMI Method:Stated General Appearance: WD/WN, no apparent distress HEENT: PERRL/EOMI, normal ENT inspection Neck: non-tender, full range of motion, supple Cardiovascular: regular rate, rhythm, no edema, no JVD Respiratory: lungs clear, normal breath sounds, no respiratory distress Gastrointestinal: normal bowel sounds, non tender, soft Back: normal inspection, no CVA tenderness Extremities: normal range of motion, non-tender, normal inspection, no pedal edema Psychiatric: alert, oriented x 3 Crainal Nerves: normal hearing, normal speech, PERRL Motor/Sensory: no motor deficit, no sensory deficit Skin: normal color, warm/dry (MIKE SCHUMACHER DO) Progress/Results/Core Measures Results/Orders Lab Results Laboratory Tests Test 04/14/19 16:55 Range/Units Urine Color YELLOW Urine Clarity SLT CLOUDY Urine pH 8.5 5-9 Urine Specific [place] 1.015 L 1.016-1.022 Urine Protein NEGATIVE NEGATIVE Urine Glucose (UA) NEGATIVE NEGATIVE Urine Ketones NEGATIVE NEGATIVE Urine Nitrite NEGATIVE NEGATIVE Urine Bilirubin NEGATIVE NEGATIVE Urine Urobilinogen 0.2 < = 1.0 MG/DL Urine Leukocyte Esterase 1+ H NEGATIVE Urine RBC (Auto) NEGATIVE NEGATIVE Urine RBC NONE /HPF Urine WBC 5-10 H /HPF Urine Squamous Epithelial Cells 2-5 /HPF Urine Crystals NONE /LPF Urine Bacteria LARGE H /HPF Urine Casts NONE /LPF Urine Mucus NONE /LPF Urine Culture Indicated YES (JATIN MARTINEZ MD) Medications Given in ED Current Medications Medications Dose Ordered Sig/Blanca Route Start Time Stop Time Status Last Admin Dose Admin Acetaminophen 1,000 mg ONCE ONCE PO 04/14/19 17:15 04/14/19 17:16 DC 04/14/19 17:33 1,000 MG Diphenhydramine HCl 25 mg ONCE ONCE IVP 04/14/19 17:15 04/14/19 17:16 DC 04/14/19 17:33 25 MG Metoclopramide HCl 10 mg ONCE ONCE IVP 04/14/19 17:15 04/14/19 17:16 DC 04/14/19 17:33 10 MG (JATIN MARTINEZ MD) Vital Signs/I&O 04/14/19 16:55 Temp 36.3 Pulse 87 Resp 16 B/P (MAP) 130/79 Pulse Ox 99 O2 Delivery Room Air (JATIN MARTINEZ MD) Progress Progress Note : Progress Note @1800 - Patient care handed over to Dr. Martinez at this time. Awaiting patient's response to treatment and UA results. She is stable at this time. (MIKE SCHUMACHER DO) Progress Note : Time: 18:14 Progress Note On recheck of the patient she was feeling better and felt that she could go home. Headache improved and tolerating po. Encouraged to check with Dr. Carla Floyd in [place] about her migraines and meds she could take at home for her Migraines (JATIN MARTINEZ MD) Departure Impression Primary Impression: Migraine Qualified Codes: G43.009 - Migraine without aura, not intractable, without status migrainosus Additional Impression: Acute UTI Disposition: 01 HOME, SELF-CARE Condition: Improved Departure-Patient Inst. Decision time for Depature: 18:31 (JATIN MARTINEZ MD) Referrals: CARLA FLOYD MD (PCP/Family) Primary Care Physician Patient Instructions: Migraine Headache (DC), Urinary Tract Infection, Adult (DC) Add. Discharge Instructions: Stay well hydrated and drink plenty of fluids. Take the antibiotics for your urine infection. Follow up with Dr. Floyd at least by phone and see if she might want you to have some medicine available at home for Migraine headaches. All discharge instructions reviewed with patient and/or family. Voiced understanding. Scripts Nitrofurantoin Monohyd/M-Cryst (Macrobid 100 mg Capsule) 100 Mg Capsule 1 TAB PO BID for 5 Days, #10 CAP Prov: MIKE SCHUMACHER DO 04/14/19 MIKE SCHUMACHER DO Apr 14, 2019 17:12 JATIN MARTINEZ MD Apr 14, 2019 18:32
[2019-04-14] MEDS ORDERED: diphenhydrAMINE 50 MG/ML INJ (BENADRYL) IVP ONE (17:15)
[2019-04-14] MEDS ORDERED: METOCLOPRAMIDE INJ 10 MG/2 ML (REGLAN) IVP ONE (17:15)
[2019-04-14] MEDS ORDERED: NS IV 1000 ML 1,000 ML IV SCH (17:15)
[2019-04-14] MEDS ORDERED: ACETAMINOPHEN 500 MG TAB (TYLENOL) PO ONE (17:15)
[2019-04-14 17:16] LABS: BILIRUBIN,URINE NEGATIVE (NEGATIVE); CLARITY,URINE SLT CLOUDY; COLOR,URINE YELLOW; GLUCOSE, URINE (UA) NEGATIVE (NEGATIVE); KETONES,URINE NEGATIVE (NEGATIVE); LEUKOCYTE ESTERASE ,URINE 1+ (NEGATIVE); NITRITE,URINE NEGATIVE (NEGATIVE); PH,URINE 8.5 (5-9); PROTEIN,URINE NEGATIVE (NEGATIVE)
[2019-04-14 17:17] LABS: BACTERIA,URINE LARGE /HPF
[2019-04-14] MEDS ORDERED: NITR-65 PO (17:53)
== END 2019-04-14 18:55 | disposition home or self-care (01) ==
LOC: EDUNIT# 16:51 → ER FS 16:53
DX: G43.909 Migraine, unspecified, not intractable, without status migrainosus (principal); N39.0 Urinary tract infection, site not specified; J45.909 Unspecified asthma, uncomplicated; F41.9 Anxiety disorder, unspecified; Z88.8 Allergy status to other drugs, medicaments and biological substances; Z82.49 Family history of ischemic heart disease and other diseases of the circulatory system
CPT/HCPCS: 81000; 84703; 87088; 96361; 96374; 96375